=== PATIENT | female | born 1965 | race Caucasian/White ===

== ENCOUNTER 2016-09-07 13:06 | Emergency (ER) | payer OTHER ==
[~2016-09-07] VITALS: Ht 167.6 cm; Wt 83.9 kg
[~2016-09-07 13:06] MED LIST: VIBRAMYCIN HYC100 MG PO
--- OUTSIDE RECORDS SUMMARY | 2016-09-07 13:10 | External Medical Summary Rpt ---
Author Author MURAL[facility] Gould, [employer] Organization [employer] Address Unknown Phone Unavailable
--- OUTSIDE RECORDS SUMMARY | 2016-09-07 13:10 | External Medical Summary Rpt ---
Author Author , Organization [employer] Address Unknown Phone Unavailable Purpose Continuity of Care Document - through 2016
--- OUTSIDE RECORDS SUMMARY | 2016-09-07 13:10 | External Medical Summary Rpt ---
Demographics Preferred Language Czech Marital Status Unknown Christian Affiliation Unknown Race Unknown Ethnic Group Unknown Author Author , Organization [employer] Address Unknown Phone Unavailable Purpose Continuity of Care Document - through 2016 Immunization No patient found.
--- OUTSIDE RECORDS SUMMARY | 2016-09-07 13:10 | External Medical Summary Rpt ---
Demographics Preferred Language Uzbek Marital Status Unknown Taoism Affiliation Unknown Race Unknown Ethnic Group Unknown Author Author , Organization [employer] Address Unknown Phone Unavailable Purpose Continuity of Care Document - through 2016 Immunization No patient found.
--- NOTE | 2016-09-07 13:32 | Urgent Treatment Center Report ---
History of Present Issue Date/Time Seen by Provider 09/07/16 1326 Visit Reason Pt arrived:Walked Presenting Problem:PT REQUESTING REEVALUATION OF TIC BITE TO RIGHT FOOT. APPEARANCE HAS CHANGED SINCE LAST VISIT AND PT REPORTS NOT FEELING WELL AND ADVISES THAT DR DESAI'S OFFICE REFERRED HER HERE BEFORE HER APPT WITH THEM THIS COMING TUESDAY Location if Accident: Onset of symptoms date/time:/ or onset unknown for:MEDICAL HX UNKNOWN Have you (or family members/close friends) recently traveled outside the [place]? N If Yes, where/when: Have you had exposure to infectious disease within the past month? TB? Other? Specify: c/o increasing redness and swelling to posterior side of middle toe, right foot. Seen Tuesday, 2 days ago, d/t redness after removing a tick 08/29/16. Start doxy. Redness and swelling worse and today, "like a blister" in area close to location where tick was removed. Lots of itching and burning. No heat, drainage, fever, aches, chills. "just over all worried about this". New PCP, Dr. Desai, is going to work to get her in sooner but the soonest is this Tuesday, 3 more days. In the meantime, was referred here. Source patient Exam Limitations no limitations ALLERGIES Coded Allergies: Penicillins (03/21/15) Home Medications Active Scripts Doxycycline Hyclate (Vibramycin) 100 MG PO BID #28 CAP Prov: 09/03/16 History Medical History General CAD? No Angina: No MD: No Hypertension? No Hyperlipidemia? Yes CHF? No DVT? No PE? No COPD? No Asthma? No Anemia? No GERD? No Gastric ulcers? No GI Bleed? No Hernia? No Thyroid Problems? No CVA? No Seizures? No Diabetes? Yes Insulin Dependent: No Insulin Pump: No Home FSBS? Yes Renal Insuffiency? No UTI? Yes Stones? No BPH? No GB Disease: Yes Nephritic Syndrome? No Asplenia? No Hepatitis? No Sickle Cell Disease? No Arthritis? No Migraines? No Cataracts? No Glaucoma? No MRSA? No HIV? No TB? No Anxiety? No Depression? No Cancer? No More? No Immunization HX DT/Tetanus 5-10 YRS Flu LAST YEAR Pneumonia NEVER Surgical Hx Previous Surgery?Y D & C REMOVAL OF VAGINAL GROWTH Family History Family HX Diabetes No CAD No Hypertension Yes Hyperlipidemia No Cancer Yes TB No Social History Smoking Hx Smoker: Never Smoker Tobacco: No Alcohol Alcohol: No Review of Systems All Other Systems Reviewed and Negative Constitutional see HPI Respiratory denies shortness of breath Gastrointestinal denies nausea, denies vomiting Musculoskeletal denies joint pain, denies muscle stiffness, denies other (limited ROM) Skin see HPI Psychiatric/Neurological denies numbness, denies tingling Physical Exam Vital Signs Vital Signs Date Time Temp Pulse Resp B/P Pulse O2 O2 Flow FiO2 Ox Delivery Rate 09/07 1402 98.2 110 20 142/96 96 09/07 1316 98.2 110 20 142/96 96 General Appearance normal appearance, no apparent distress Respiratory Status No: respiratory distress. Cardiovascular no peripheral edema Peripheral Pulses Pulses normal Yes (bilateral pedal) Back gait normal Neurologic alert, no motor/sensory deficits Skin posterior rt middle digit proximal phalanx w/ generalized redness, swelling , tenderness. No red streaking, rash, bulls-eye . In center, approx 0.5cm vesicle. Soft, fluctuate, non-tender. No warmth. Medical Decision Making LABS/Meds/Orders Pt receiving controlled substance in ED? No Procedures Incision and Drainage Incision and Drainage Risks/benefits discussed with pt/guardian? Yes Problem type Abcess Location rt middle digit, posterior, proximal phalanx Size cm 0.5 Anesthesia None Blade Size 11 I & D Procedure Simple, sterile drapes applied, Scalpel incision cm- (0.25), Pus small amount (thin, serous), Sterile Dressing Applied. no: betadine prep (chlorhexadine swabs), Cultured, Dissection, Mult. loculations broken , Irrigation ml-, gauze wick placed (not necessary, superficial). Progress Pt tolerated very well. No complaints. Wound bed healthy, pink, moist. localized within dermis Departure Departure Time of Disposition 1356 Disposition DC Home or Self Care(routine) Clinical Impression Primary Impression: Cellulitis and abscess of toe of right foot Condition STABLE Referrals Magdiel Desai MD Keep FU appt for 09/10/16. Return to [facility] or ER sooner for new or worsening symptoms before then. Patient Instructions DI for Cellulitis -- Adult, DI for Skin Abscess Additional Instructions * Start second antibiotic immediately and be sure to take as ordered for the FULL length of time although you should start to see improvement over the next 24-48 hours unless told otherwise at FU appt. Continue doxy. * Monitor closely as you are at increased risk with your history of diabetes. Clean w/ mild soap and water. Apply bacitracin twice a day and keep covered to prevent further infection. FU immediately for new or worsening symptoms ( including but not limited to redness, swelling, red streaking, fever, chills). * Warm compresses 15 min 3-4 times a day * never squeeze or pop these on your own. Seek immediate medical attention next time these occur. * Monitor Temp. Tylenol every 4 hours as needed and/or ibuprofen every 6 hours as needed (as long as your primary care doctor has told you that it is ok to take both) for fever/aches/pain. ER if fever no less than 101 despite tylenol and ibuprofen Discharge Counseling Counseled pt/family regarding diagnosis, medications/RX, home care, follow up needs Prescriptions Current Visit Scripts CEPHALEXIN (Keflex 500MG Capsule) 500 MG PO Q6H #40 CAP Bacitracin (Ak-Tracin) 1 DYLAN OP BID #1 TUBE Ref 1 at 0753
[2016-09-07] MEDS ORDERED: KEFLEX 500MG.500 MG PO (14:00)
[2016-09-07] MEDS ORDERED: AK-TRACIN500 U/GM OP (14:01)
[2016-09-07 14:02] VITALS: BP 142/96
== END 2016-09-07 14:03 | disposition home or self-care (01) ==
LOC: UTC 13:06
PROC: 0H9MXZZ Drainage of Right Foot Skin, External Approach (ICD-10-PCS; principal; 2016-09-07)
DX: L02.611 Cutaneous abscess of right foot (principal); W57.XXXA Bitten or stung by nonvenomous insect and other nonvenomous arthropods, initial encounter